=== PATIENT | female | born 1975 ===

== ENCOUNTER 2018-07-17 19:55 | Emergency (ER) | payer BC ==
--- NOTE | 2018-07-17 21:13 | ULT ---
DOPPLER VENOUS ULTRASOUND OF RIGHT LOWER EXTREMITY 07/17/18 INDICATION: History of lower extremity edema, right greater than left with history of 37 weeks . TECHNIQUE: Ceron scale, color doppler and vascular duplex with spectral analysis was performed of the deep venous structures of the right lower extremity. Common femoral vein, superficial femoral vein, popliteal ve in, posterior tibial vein, proximal greater saphenous and profunda veins were assessed. FINDINGS: Normal compression, flow, and augmentation seen within the deep venous structures of the right lower extremity. IMPRESSION: No evidence of DVT to the right lower extremity. POS: [facility]
[2018-07-17 21:33] LABS: #Eosinphils 0.1 thou/uL (0.0-0.7); #Lymphocytes 1.6 thou/uL (1.20-3.40); #Monocytes 0.6 thou/uL (0.11-0.59); #Neutrophils 4.6 thou/uL (1.40-6.50); %Basophils 0.7 % (0.0-1.0); %Monocytes 8.8 % (0.0-10.0); %Neutrophils 66.6 % (42.0-75.0); Hemoglobin 12.8 g/dL (12.0-16.0); Mean Corpuscular HGB CONC 32.6 g/dL (32.0-36.0); Mean Corpuscular Hemoglobin 29.1 pg (27.0-31.0); Mean Corpuscular Volume 89.3 fL (78.0-98.0); Mean Platelet Volume 7.3 fL (7.4-10.4); Platelet Count 245 thou/uL (130-400); Red Blood Cell (RBC) Count 4.39 mill/uL (4.20-5.40); White Blood Cell (WBC) Count 6.9 thou/uL (4.8-10.8)
[2018-07-17 21:53] LABS: ALT (SGPT) 13 U/L (8-55); AST (SGOT) 17 U/L (5-34); Albumin 3.2 g/dL (3.5-5.0); Alkaline Phosphatase 132 U/L (40-150); Anion Gap 12 mmol/L (10-20); BUN (Urea Nitrogen) 11 mg/dL (7.0-18.7); Bilirubin, Total 0.2 mg/dL (0.2-1.2); Calc. Creatinine Clearance 0 mL/min (70-130); Carbon Dioxide 23 mmol/L (22-29); Chloride 104 mmol/L (98-107); Estimated GFR-MDRD Greater than 90; Globulin 3.2 g/dL (2.4-3.5); Glucose 87 mg/dL (70-105); Potassium 3.7 mmol/L (3.5-5.1); Protein, Total 6.4 g/dL (6.0-8.3); Sodium 135 mmol/L (136-145)
[2018-07-17 22:27] LABS: Bilirubin Negative (Negative); Blood, Urine Negative (Negative); Clarity CLEAR (Clear); Glucose, Urine (Dipstick) Negative (Negative); Leukocyte Negative (Negative); Nitrite Negative (Negative); Protein, Urine (Dipstick) Negative (Neg-Trace); Specific Gravity, Urine 1.008 (1.002-1.036); Urobilinogen 0.2 mg/dL (0.2-1.0); pH, Urine 6.5 (5.0-9.0)
== END 2018-07-17 22:09 | disposition home or self-care (01) ==
LOC: ERS 19:55
DX: O99.89 Other specified diseases and conditions complicating pregnancy, childbirth and the puerperium (principal); M79.89 Other specified soft tissue disorders; O09.513 Supervision of elderly primigravida, third trimester; Z3A.38 38 weeks gestation of pregnancy
CPT/HCPCS: 36415; 80053; 81003; 85025; 85379

== ENCOUNTER 2018-07-21 15:08 | Outpatient (CLI) | payer BC ==
--- NOTE | 2018-07-21 17:28 | ULT ---
RIGHT LOWER EXTREMITY VENOUS DOPPLER ULTRASOUND EVALUATION 07/21/18 HISTORY: Right lower extremity edema. Multiple longitudinal and transverse images of the right lower extremity venous system is obtained us ing a multihertz linear array transducer. Real time, color flow, and spectral waveform doppler analys is demonstrates no evidence of acute or old clot seen in the right common femoral, superficial femora l, femora profunda, popliteal vein, posterior tibial vein and post trifurcation veins. No evidence of greater saphenous vein occlusion seen. IMPRESSION: No evidence of acute right lower extremity venous doppler ultrasound evaluation. POS: [facility]
== END 2018-07-21 15:09 | disposition home or self-care (01) ==
LOC: ULT 15:08
PROVIDERS: ATTEND Obstetrics & Gynecology
DX: R22.41 Localized swelling, mass and lump, right lower limb (principal)